=== PATIENT | male | born 1930 | race Caucasian/White ===

== ENCOUNTER 2020-03-19 13:35 | Observation (INO) ==
[2020-03-19] MEDS ORDERED: Ondansetron 4 MG/2 ML VIAL IVP PRN (15:47)
[2020-03-19] MEDS ORDERED: Naloxone 0.4 MG/ML INJ IVP PRN (15:47)
[2020-03-19] MEDS ORDERED: Acetaminophen 325 MG TABLET PO PRN (15:47)
[2020-03-19] MEDS ORDERED: Furosemide 20 MG/2 ML VIAL IVP ONE (15:52)
[2020-03-19] MEDS ORDERED: *HR* Phytonadione 5 MG TABLET PO ONE (15:53)
[2020-03-19] MEDS ORDERED: 0.9 % Sodium Chloride 250 ML IVC SCH (16:00)
[2020-03-19 18:33] LABS: Hematocrit 25.7 % (37.5-50.1); Hemoglobin 7.5 g/dL (12.9-16.9)
[2020-03-20 05:20] LABS: INR 2.4; Prothrombin Time 27.6 Seconds (9.4-12.1)
[2020-03-20 05:22] LABS: Mean Corpuscular HGB Conc 30.7 g/dL (31.6-35.5); Mean Platelet Volume 12.9 fL (9.4-12.4)
[2020-03-20 05:24] LABS: Hematocrit 27.7 % (37.5-50.1); Hemoglobin 8.5 g/dL (12.9-16.9); Immature Platelets 6.9 % (1.1-6.1); Mean Corpuscular Hemoglobin 29.4 pg (28.0-33.3); Mean Corpuscular Volume 95.8 fL (83.0-100.0); Red Blood Count 2.89 M/mcL (4.19-5.50); White Blood Count 27.9 K/mcL (4.3-11.1)
[2020-03-20 05:36] LABS: Potassium 4.2 mEq/L (3.5-5.1)
[2020-03-20] MEDS ORDERED: FLECAINIDE ACETATE 25 MG PO SCH (14:21)
[2020-03-20] MEDS: Metoprolol XL (24 HR) Succ 25 MG TAB.ER.24H PO SCH (16:53)
[2020-03-20] MEDS ORDERED: Warfarin perPT PO PRN (18:00)
[2020-03-20] MEDS ORDERED: *HR* Warfarin 2.5 MG TABLET PO ONE (18:00)
[2020-03-21 06:58] LABS: Basophils % 0.2 %; Hemoglobin 8.5 g/dL (12.9-16.9); Immature Granulocytes % 0.2 % (0-4)
[2020-03-21 06:59] LABS: Basophils # 0.1 K/mcL (0.0-0.2); Eosinophils % 1.3 %; Hematocrit 27.7 % (37.5-50.1); Immature Platelets 5.3 % (1.1-6.1); Lymphocytes % 83.1 %; Mean Corpuscular HGB Conc 30.7 g/dL (31.6-35.5); Mean Corpuscular Hemoglobin 30.7 pg (28.0-33.3); Mean Platelet Volume 12.8 fL (9.4-12.4); Monocytes % 0.7 %; Red Blood Count 2.77 M/mcL (4.19-5.50); Red Cell Distribution Width 19.2 % (11.5-14.5); Segmented Neutrophils % 14.5 %; White Blood Count 22.5 K/mcL (4.3-11.1)
[2020-03-21 07:00] LABS: Eosinophils # 0.3 K/mcL (0.0-0.6); Lymphocytes # 18.7 K/mcL (0.6-4.6); Monocytes # 0.2 K/mcL (0.0-1.3); Neutrophils # 3.3 K/mcL (1.6-8.9)
[2020-03-21 07:04] LABS: INR 1.4; Prothrombin Time 16.5 Seconds (9.4-12.1)
[2020-03-21 07:08] LABS: Platelet Count 65 K/mcL (140-400)
[2020-03-21 07:20] LABS: Calcium 8.2 mg/dL (8.6-10.3); Potassium 4.6 mEq/L (3.5-5.1)
[2020-03-21 07:44] LABS: Platelet Estimate Normal (Normal)
[2020-03-21 07:45] LABS: Smudge Cells Present (Not Present)
[2020-03-21] MEDS: Metoprolol XL (24 HR) Succ 25 MG TAB.ER.24H PO SCH (09:41)
[2020-03-21] MEDS: Furosemide 20 MG TABLET PO SCH (09:41)
[2020-03-21] MEDS: Isosorbide MONOnitrate (24 HR) 60 MG TAB.ER.24H PO SCH (09:41)
[2020-03-21] MEDS: *HR* Enoxaparin 80 MG/0.8 ML SYRINGE SQ SCH (13:10)
[2020-03-21] MEDS ORDERED: *HR* Warfarin 2.5 MG TABLET PO ONE (18:00)
[2020-03-22] MEDS: *HR* Enoxaparin 80 MG/0.8 ML SYRINGE SQ SCH (09:25)
[2020-03-22] MEDS: Metoprolol XL (24 HR) Succ 25 MG TAB.ER.24H PO SCH (09:26)
[2020-03-22] MEDS: Isosorbide MONOnitrate (24 HR) 60 MG TAB.ER.24H PO SCH (09:27)
[2020-03-22] MEDS: Furosemide 20 MG TABLET PO SCH (09:27)
[2020-03-22 09:45] LABS: Basophils % 0.2 %; Hemoglobin 8.6 g/dL (12.9-16.9); Immature Granulocytes % 0.2 % (0-4)
[2020-03-22 09:47] LABS: Eosinophils # 0.2 K/mcL (0.0-0.6); Eosinophils % 1.1 %; Hematocrit 28.6 % (37.5-50.1); Immature Platelets 6.6 % (1.1-6.1); Lymphocytes % 76.6 %; Mean Corpuscular HGB Conc 30.1 g/dL (31.6-35.5); Mean Corpuscular Hemoglobin 29.6 pg (28.0-33.3); Mean Corpuscular Volume 98.3 fL (83.0-100.0); Mean Platelet Volume 12.8 fL (9.4-12.4); Monocytes # 0.2 K/mcL (0.0-1.3); Neutrophils # 4.4 K/mcL (1.6-8.9); Red Blood Count 2.91 M/mcL (4.19-5.50); Red Cell Distribution Width 18.3 % (11.5-14.5); Segmented Neutrophils % 20.9 %; White Blood Count 20.9 K/mcL (4.3-11.1)
[2020-03-22 09:56] LABS: Platelet Count 65 K/mcL (140-400)
[2020-03-22 09:59] LABS: INR 1.3; Prothrombin Time 15.1 Seconds (9.4-12.1)
[2020-03-22 10:00] LABS: Calcium 8.4 mg/dL (8.6-10.3); Potassium 4.7 mEq/L (3.5-5.1)
[2020-03-22 11:17] VITALS: BP 112/69
[2020-03-22 11:22] LABS: Platelet Estimate Decreased (Normal)
[2020-03-22] MEDS ORDERED: *HR* Warfarin 2.5 MG TABLET PO ONE (18:00)
== END 2020-03-22 15:51 | disposition home health service (06) ==
LOC: 3ANU → SUATTDRO 15:29
PROVIDERS: ADMIT Internal Medicine; ATTEND Internal Medicine

== ENCOUNTER 2020-03-28 13:44 | Inpatient (IN) ==
[2020-03-28] MEDS ORDERED: Naloxone 0.4 MG/ML INJ IVP PRN (17:59)
[2020-03-28] MEDS ORDERED: Warfarin perPT PO PRN (18:00)
[2020-03-28] MEDS ORDERED: Piperacillin/Tazobactam 3.375 GM VIAL IVPB SCH (18:00)
[2020-03-28] MEDS ORDERED: methylPREDNISolone 125 MG/2 ML VIAL IVP ONE (18:17)
[2020-03-28] MEDS ORDERED: *HR* Warfarin 2.5 MG TABLET PO ONE (19:37)
[2020-03-28] MEDS: Piperacillin/Tazobactam 3.375 GM in 0.9 % Sodium Chloride Mini Bag 100 ML IVPB SCH (19:54)
[2020-03-28 20:34] LABS: Basophils % 0.2 %; Immature Granulocytes % 0.1 % (0-4); Mean Corpuscular Volume 98.4 fL (83.0-100.0); Monocytes % 0.7 %
[2020-03-28 20:35] LABS: Eosinophils # 0.2 K/mcL (0.0-0.6); Eosinophils % 1.1 %; Hemoglobin 8.9 g/dL (12.9-16.9); Immature Platelets 7.2 % (1.1-6.1); Lymphocytes # 15.5 K/mcL (0.6-4.6); Lymphocytes % 82.2 %; Mean Corpuscular HGB Conc 29.7 g/dL (31.6-35.5); Mean Corpuscular Hemoglobin 29.2 pg (28.0-33.3); Mean Platelet Volume 13.5 fL (9.4-12.4); Monocytes # 0.1 K/mcL (0.0-1.3); Nucleated Red Blood Cells 0.1 /100 WBC (0); Red Blood Count 3.05 M/mcL (4.19-5.50); Red Cell Distribution Width 17.9 % (11.5-14.5); Segmented Neutrophils % 15.7 %; White Blood Count 18.9 K/mcL (4.3-11.1)
[2020-03-28 20:38] LABS: Platelet Count 56 K/mcL (140-400)
[2020-03-28] MEDS: Ipratropium/Albuterol Neb 3 ML IH SCH ×2 (20:39→23:24)
[2020-03-28 20:53] LABS: Calcium 8.1 mg/dL (8.6-10.3); Potassium 4.3 mEq/L (3.5-5.1)
[2020-03-28 20:56] LABS: Anisocytosis 1+ (Not Present); Platelet Estimate Decreased (Normal); Reactive Lymphocytes Present (Not Present); Smudge Cells Present (Not Present)
[2020-03-28 20:57] LABS: Macrocytosis Present (Not Present)
[2020-03-28 20:57] LABS: Adenovirus Not Detected (Not Detect); Coronavirus 229E Not Detected (Not Detect); Coronavirus HKU1 Not Detected (Not Detect); Coronavirus NL63 Not Detected (Not Detect); Coronavirus OC43 Not Detected (Not Detect)
[2020-03-28 20:58] LABS: Bordetella Pertussis Not Detected (Not Detect); Chlamydophila pneumoniae Not Detected (Not Detect); Human Metapneumovirus Not Detected (Not Detect); Human Rhinovirus/Enterovirus Not Detected (Not Detect); Influenza A Subtype 2009 H1 Not Detected (Not Detect); Influenza B Not Detected (Not Detect); Mycoplasma pneumoniae Not Detected (Not Detect); Parainfluenza Virus 1 Not Detected (Not Detect); Parainfluenza Virus 2 Not Detected (Not Detect); Parainfluenza Virus 3 Not Detected (Not Detect); Parainfluenza Virus 4 Not Detected (Not Detect); Respiratory Syncytial Virus Not Detected (Not Detect); SARS-CoV-2 Not Detected (Not Detect)
[2020-03-28] MEDS: MethylPREDNISolone 40 MG/ML VIAL IVP SCH (23:49)
[2020-03-29 02:01] LABS: INR 1.6; Prothrombin Time 18.5 Seconds (9.4-12.1)
[2020-03-29 02:03] LABS: Basophils % 0.1 %; Red Cell Distribution Width 17.6 % (11.5-14.5)
[2020-03-29 02:05] LABS: Hematocrit 29.9 % (37.5-50.1); Immature Granulocytes % 0.2 % (0-4); Immature Platelets 7.8 % (1.1-6.1); Lymphocytes % 85.3 %; Mean Corpuscular HGB Conc 30.1 g/dL (31.6-35.5); Mean Corpuscular Volume 96.5 fL (83.0-100.0); Mean Platelet Volume 12.9 fL (9.4-12.4); Monocytes # 0.1 K/mcL (0.0-1.3); Monocytes % 0.5 %; Segmented Neutrophils % 13.9 %; White Blood Count 22.7 K/mcL (4.3-11.1)
[2020-03-29 02:10] LABS: Lymphocytes # 19.4 K/mcL (0.6-4.6); Neutrophils # 3.2 K/mcL (1.6-8.9); Platelet Count 55 K/mcL (140-400)
[2020-03-29 02:15] LABS: Calcium 8.1 mg/dL (8.6-10.3); Potassium 4.5 mEq/L (3.5-5.1)
[2020-03-29] MEDS: Ipratropium/Albuterol Neb 3 ML IH SCH ×6 (03:11→23:04)
[2020-03-29] MEDS ORDERED: amLODIPine 5 MG TABLET PO SCH (09:00)
[2020-03-29] MEDS: Ascorbic Acid 500 MG TABLET PO SCH (10:34)
[2020-03-29] MEDS: Isosorbide MONOnitrate (24 HR) 60 MG TAB.ER.24H PO SCH (10:34)
[2020-03-29] MEDS: Piperacillin/Tazobactam 3.375 GM in 0.9 % Sodium Chloride Mini Bag 100 ML IVPB SCH ×2 (10:34→17:36)
[2020-03-29] MEDS: allopurinoL 100 MG TABLET PO SCH (10:35)
[2020-03-29] MEDS: Metoprolol XL (24 HR) Succ 25 MG TAB.ER.24H PO SCH (10:35)
[2020-03-29] MEDS: Aspirin 81 MG TAB.CHEW PO SCH (10:35)
[2020-03-29] MEDS: Furosemide 20 MG TABLET PO SCH (10:35)
[2020-03-29] MEDS: MethylPREDNISolone 40 MG/ML VIAL IVP SCH ×2 (10:37→17:36)
[2020-03-29] MEDS ORDERED: *HR* Warfarin 5 MG TABLET PO ONE (18:00)
[2020-03-30] MEDS: MethylPREDNISolone 40 MG/ML VIAL IVP SCH ×4 (00:17→23:25)
[2020-03-30] MEDS: Piperacillin/Tazobactam 3.375 GM in 0.9 % Sodium Chloride Mini Bag 100 ML IVPB SCH ×4 (00:17→23:24)
[2020-03-30 01:18] LABS: Basophils % 0.1 %; Immature Granulocytes % 0.3 % (0-4)
[2020-03-30 01:20] LABS: Hematocrit 27.8 % (37.5-50.1); Hemoglobin 8.3 g/dL (12.9-16.9); Immature Platelets 7.6 % (1.1-6.1); Lymphocytes # 19.2 K/mcL (0.6-4.6); Lymphocytes % 79.8 %; Mean Corpuscular HGB Conc 29.9 g/dL (31.6-35.5); Mean Corpuscular Hemoglobin 29.2 pg (28.0-33.3); Mean Corpuscular Volume 97.9 fL (83.0-100.0); Mean Platelet Volume 12.3 fL (9.4-12.4); Monocytes # 0.1 K/mcL (0.0-1.3); Monocytes % 0.5 %; Neutrophils # 4.6 K/mcL (1.6-8.9); Red Blood Count 2.84 M/mcL (4.19-5.50); Red Cell Distribution Width 17.6 % (11.5-14.5); Segmented Neutrophils % 19.3 %
[2020-03-30 01:22] LABS: Prothrombin Time 22.8 Seconds (9.4-12.1)
[2020-03-30 01:32] LABS: Platelet Count 60 K/mcL (140-400)
[2020-03-30 01:41] LABS: Calcium 8.2 mg/dL (8.6-10.3); Potassium 4.6 mEq/L (3.5-5.1)
[2020-03-30 02:05] LABS: Anisocytosis 1+ (Not Present); Platelet Estimate Decreased (Normal); Reactive Lymphocytes Present (Not Present); Smudge Cells Present (Not Present)
[2020-03-30] MEDS: Ipratropium/Albuterol Neb 3 ML IH SCH ×6 (04:45→23:36)
[2020-03-30] MEDS: allopurinoL 100 MG TABLET PO SCH (08:15)
[2020-03-30] MEDS: Furosemide 20 MG TABLET PO SCH (08:15)
[2020-03-30] MEDS: Isosorbide MONOnitrate (24 HR) 60 MG TAB.ER.24H PO SCH (08:15)
[2020-03-30] MEDS: Ascorbic Acid 500 MG TABLET PO SCH (08:16)
[2020-03-30] MEDS: Metoprolol XL (24 HR) Succ 25 MG TAB.ER.24H PO SCH (08:16)
[2020-03-30] MEDS: Aspirin 81 MG TAB.CHEW PO SCH (08:17)
[2020-03-30] MEDS ORDERED: Vancomycin 500 MG in 0.9 % Sodium Chloride Mini Bag 100 ML IVPB SCH (14:00)
[2020-03-30] MEDS ORDERED: *HR* Warfarin 5 MG TABLET PO ONE (18:00)
[2020-03-31 01:14] LABS: Basophils % 0.1 %; Hemoglobin 8.6 g/dL (12.9-16.9)
[2020-03-31 01:16] LABS: Hematocrit 29.6 % (37.5-50.1); Immature Granulocytes % 0.3 % (0-4); Immature Platelets 7.9 % (1.1-6.1); Lymphocytes # 29.5 K/mcL (0.6-4.6); Mean Corpuscular HGB Conc 29.1 g/dL (31.6-35.5); Mean Corpuscular Hemoglobin 29.1 pg (28.0-33.3); Mean Platelet Volume 13.6 fL (9.4-12.4); Monocytes # 0.1 K/mcL (0.0-1.3); Monocytes % 0.4 %; Neutrophils # 5.8 K/mcL (1.6-8.9); Nucleated Red Blood Cells 0.1 /100 WBC (0); Red Blood Count 2.96 M/mcL (4.19-5.50); Segmented Neutrophils % 16.2 %
[2020-03-31 01:21] LABS: INR 3.3; Prothrombin Time 37.4 Seconds (9.4-12.1)
[2020-03-31 01:31] LABS: Calcium 8.6 mg/dL (8.6-10.3); Potassium 4.7 mEq/L (3.5-5.1)
[2020-03-31 01:37] LABS: Platelet Count 68 K/mcL (140-400)
[2020-03-31 01:39] LABS: White Blood Count 35.5 K/mcL (4.3-11.1)
[2020-03-31 01:41] LABS: Anisocytosis 1+ (Not Present); Platelet Estimate Decreased (Normal); Poikilocytosis 1+ (Not Present); Reactive Lymphocytes Present (Not Present); Smudge Cells Present (Not Present)
[2020-03-31] MEDS ORDERED: Haloperidol Lactate 5 MG/ML VIAL IVP ONE ×2 (02:48→23:01)
[2020-03-31] MEDS: Ipratropium/Albuterol Neb 3 ML IH SCH ×6 (03:33→23:31)
[2020-03-31] MEDS: Piperacillin/Tazobactam 3.375 GM in 0.9 % Sodium Chloride Mini Bag 100 ML IVPB SCH (08:03)
[2020-03-31] MEDS: MethylPREDNISolone 40 MG/ML VIAL IVP SCH ×3 (08:04→23:11)
[2020-03-31] MEDS: Aspirin 81 MG TAB.CHEW PO SCH (08:08)
[2020-03-31] MEDS: Metoprolol XL (24 HR) Succ 25 MG TAB.ER.24H PO SCH (08:08)
[2020-03-31] MEDS: Furosemide 20 MG TABLET PO SCH (08:09)
[2020-03-31] MEDS: Isosorbide MONOnitrate (24 HR) 60 MG TAB.ER.24H PO SCH (08:09)
[2020-03-31] MEDS: allopurinoL 100 MG TABLET PO SCH (08:09)
[2020-03-31] MEDS: Ascorbic Acid 500 MG TABLET PO SCH (08:09)
[2020-03-31] MEDS ORDERED: Perflutren Lipid Microsphere 1.3 ML in 0.9 % Sodium Chloride 8.7 ML IVP PRN (10:28)
[2020-03-31] MEDS ORDERED: *HR* Metoprolol 5 MG/5 ML VIAL IVP ONE (11:41)
[2020-03-31] MEDS: ceFAZolin 1,000 MG in Water for inj. (sterile) 10 ML IVP SCH (17:06)
[2020-03-31] MEDS: Metoprolol 100 MG TABLET PO SCH (22:12)
[2020-04-01] MEDS: QUEtiapine Fumarate 25 MG TABLET PO SCH ×2 (00:21→20:51)
[2020-04-01] MEDS: Ipratropium/Albuterol Neb 3 ML IH SCH ×6 (03:14→23:15)
[2020-04-01 04:52] LABS: INR 6.4; Prothrombin Time 70.7 Seconds (9.4-12.1)
[2020-04-01] MEDS: ceFAZolin 1,000 MG in Water for inj. (sterile) 10 ML IVP SCH ×2 (05:09→17:05)
[2020-04-01 06:44] LABS: Immature Granulocytes % 0.2 % (0-4)
[2020-04-01 06:46] LABS: Basophils % 0.1 %; Hematocrit 32.1 % (37.5-50.1); Hemoglobin 9.4 g/dL (12.9-16.9); Immature Platelets 7.4 % (1.1-6.1); Lymphocytes # 48.4 K/mcL (0.6-4.6); Lymphocytes % 84.5 %; Mean Corpuscular HGB Conc 29.3 g/dL (31.6-35.5); Mean Corpuscular Hemoglobin 29.1 pg (28.0-33.3); Mean Corpuscular Volume 99.4 fL (83.0-100.0); Mean Platelet Volume 12.6 fL (9.4-12.4); Monocytes # 0.9 K/mcL (0.0-1.3); Monocytes % 1.6 %; Neutrophils # 7.8 K/mcL (1.6-8.9); Red Blood Count 3.23 M/mcL (4.19-5.50); Red Cell Distribution Width 18.4 % (11.5-14.5); Segmented Neutrophils % 13.6 %
[2020-04-01 07:05] LABS: Basophils # 0.1 K/mcL (0.0-0.2); Platelet Count 87 K/mcL (140-400)
[2020-04-01 07:08] LABS: White Blood Count 57.3 K/mcL (4.3-11.1)
[2020-04-01] MEDS: MethylPREDNISolone 40 MG/ML VIAL IVP SCH (07:23)
[2020-04-01 07:31] LABS: Calcium 8.8 mg/dL (8.6-10.3); Potassium 6.1 mEq/L (3.5-5.1)
[2020-04-01 07:32] LABS: Platelet Estimate Decreased (Normal)
[2020-04-01 08:13] LABS: Albumin 3.2 g/dL (3.5-5.7); Albumin/Globulin Ratio 1.3 (1.1-2.2); Bilirubin,Direct 0.7 mg/dL (0.0-0.2); Bilirubin,Indirect 0.6 mg/dL (0.0-1.0); Bilirubin,Total 1.3 mg/dL (0.3-1.0); Globulin 2.4 g/dL (2.4-3.5); Total Protein 5.6 g/dL (6.4-8.9)
[2020-04-01 08:30] LABS: INR 7.6; Prothrombin Time 82.7 Seconds (9.4-12.1)
[2020-04-01] MEDS: allopurinoL 100 MG TABLET PO SCH (09:11)
[2020-04-01] MEDS: Metoprolol 100 MG TABLET PO SCH ×2 (09:11→20:51)
[2020-04-01] MEDS: Isosorbide MONOnitrate (24 HR) 60 MG TAB.ER.24H PO SCH (09:11)
[2020-04-01] MEDS: Aspirin 81 MG TAB.CHEW PO SCH (09:11)
[2020-04-01] MEDS: Ascorbic Acid 500 MG TABLET PO SCH (09:11)
[2020-04-01] MEDS: *HR* Phytonadione 5 MG TABLET PO ONE ×2 (09:12→09:28)
[2020-04-01 12:05] LABS: Calcium 8.7 mg/dL (8.6-10.3); Potassium 5.8 mEq/L (3.5-5.1)
[2020-04-01] MEDS: SODIUM ZIRCONIUM CYCLOSILICATE 5 GM POWD.PACK PO SCH (16:05)
[2020-04-02] MEDS: Ipratropium/Albuterol Neb 3 ML IH SCH ×4 (04:00→15:04)
[2020-04-02] MEDS: ceFAZolin 1,000 MG in Water for inj. (sterile) 10 ML IVP SCH (05:29)
[2020-04-02 05:33] VITALS: BP 118/83
[2020-04-02 06:01] LABS: Hemoglobin 9.6 g/dL (12.9-16.9); Immature Granulocytes % 0.3 % (0-4); Red Cell Distribution Width 18.8 % (11.5-14.5)
[2020-04-02 06:03] LABS: Hematocrit 32.9 % (37.5-50.1); Lymphocytes # 70.7 K/mcL (0.6-4.6); Lymphocytes % 86.9 %; Mean Corpuscular HGB Conc 29.2 g/dL (31.6-35.5); Mean Corpuscular Volume 99.4 fL (83.0-100.0); Mean Platelet Volume 12.2 fL (9.4-12.4); Monocytes # 0.9 K/mcL (0.0-1.3); Monocytes % 1.1 %; Platelet Count 108 K/mcL (140-400); Red Blood Count 3.31 M/mcL (4.19-5.50); Segmented Neutrophils % 11.7 %
[2020-04-02 06:04] LABS: INR 5.6; Prothrombin Time 62.1 Seconds (9.4-12.1)
[2020-04-02 06:09] LABS: Neutrophils # 9.5 K/mcL (1.6-8.9)
[2020-04-02 06:10] LABS: White Blood Count 81.3 K/mcL (4.3-11.1)
[2020-04-02 06:15] LABS: Calcium 8.4 mg/dL (8.6-10.3); Potassium 5.8 mEq/L (3.5-5.1)
[2020-04-02 06:16] LABS: Albumin 3.1 g/dL (3.5-5.7); Calcium 8.5 mg/dL (8.6-10.3); Phosphorous 7.1 mg/dL (2.7-4.5)
[2020-04-02 06:37] LABS: Anisocytosis 1+ (Not Present); Microcytosis Present (Not Present); Platelet Estimate Decreased (Normal); Reactive Lymphocytes Present (Not Present); Smudge Cells Present (Not Present)
[2020-04-02] MEDS: Aspirin 81 MG TAB.CHEW PO SCH (07:42)
[2020-04-02] MEDS: Isosorbide MONOnitrate (24 HR) 60 MG TAB.ER.24H PO SCH (07:42)
[2020-04-02] MEDS: allopurinoL 100 MG TABLET PO SCH (07:42)
[2020-04-02] MEDS: Metoprolol 100 MG TABLET PO SCH (07:42)
[2020-04-02] MEDS: Ascorbic Acid 500 MG TABLET PO SCH (07:42)
[2020-04-02] MEDS: SODIUM ZIRCONIUM CYCLOSILICATE 5 GM POWD.PACK PO SCH (07:58)
[2020-04-02] MEDS ORDERED: Calcium Gluconate 1gm/50mL 1 GM/50 ML BAG IVPB ONE (08:35)
[2020-04-02] MEDS ORDERED: Insulin Human Regular 10 UNIT in 0.9 % Sodium Chloride 10 ML IV ONE (08:36)
[2020-04-02] MEDS ORDERED: *HR* Dextrose 50 % in Water (Vial) 50 ML VIAL IVP ONE (08:36)
[2020-04-02] MEDS ORDERED: predniSONE 20 MG TABLET PO SCH (09:00)
[2020-04-02] MEDS ORDERED: Dextrose Gel 15 GM/37.5 ML TUBE PO PRN ×2 (11:08)
[2020-04-02] MEDS ORDERED: D5% in Water 1,000 ML IVC PRN (11:08)
[2020-04-02] MEDS ORDERED: *HR* Dextrose 50 % in Water (Vial) 50 ML VIAL IVP PRN (11:08)
[2020-04-02] MEDS ORDERED: Haloperidol Lactate 5 MG/ML VIAL IVP PRN (12:46)
== END 2020-04-02 17:00 | disposition hospice, inpatient (51) | DRG 871 ==
LOC: 3ANU 17:28 → SUATTDRO 17:28
PROVIDERS: ADMIT Internal Medicine; ATTEND Internal Medicine